=== PATIENT | female | born 1960 | race Caucasian/White ===

== ENCOUNTER 2024-11-15 12:41 | Outpatient (CLI) | payer BC, SELFPAY ==
[2024-11-15 13:04] LABS: Hematocrit 39.0 % (37.0-47.0); Hemoglobin 13.4 g/dL (12.0-15.0)
--- NOTE | 2024-11-15 13:04 | ECG_ITS ---
Test Date: 2024-11-15 13:15:52 Measurements Intervals [place] Rate: 77 P: 30 DC: 168 QRS: -13 QRSD: 90 T: 25 QT: 395 QTc: 447 Interpretive Statements SINUS RHYTHM POSSIBLE LEFT ATRIAL ENLARGEMENT INCOMPLETE RIGHT BUNDLE BRANCH BLOCK DELAYED PRECORDIAL R/S TRANSITION LOW QRS VOLTAGE IN PRECORDIAL LEADS INFERIOR INFARCT, AGE INDETERMINATE BASELINE ARTIFACT- I, III, AVR, AVL, AVF, V5 ABNORMAL ECG No previous ECG available for comparison Electronically Signed On 11-15-2024 13:26:51 CDT by Andrew Hines D.O.
[2024-11-15 13:07] LABS: Hemoglobin A1C 6.0 % (<5.7)
[2024-11-15 13:13] LABS: Albumin Level 4.2 g/dL (3.5-5.1); Estimated Glomerular Filt Rate 58; Glucose 103 mg/dL (65-110)
== END 2024-11-15 12:42 | disposition home or self-care (01) ==
LOC: ANHLAB 12:42
PROVIDERS: Visit Provider Orthopaedic Surgery
DX: E78.00 Pure hypercholesterolemia, unspecified (principal); E11.9 Type 2 diabetes mellitus without complications; R01.1 Cardiac murmur, unspecified; R94.31 Abnormal electrocardiogram [ECG] [EKG]
CPT/HCPCS: 36415; 82040; 82565; 82947; 83036; 85014; 85018; 93005

== ENCOUNTER 2025-01-26 11:48 | Outpatient (CLI) | payer BC, SELFPAY ==
--- OUTSIDE RECORDS SUMMARY | 2025-01-26 12:03 | XMS_ITS | Encounter Summary ---
Author Organization [facility] Address [address] [place] [address] Care Team Providers Care Private Pilot Name Role Phone Jairon Fonseca MD Primary Care Provider [phone] Encounter Details Date Type Department Care Team (Late st Contact Info) Description 04/22/2000 Outpatient Historical HIS [facility] Jason Reid MD Social History Tobacco Use Types Packs/Day Years Used Date Smoking Tobacco: Never Assessed Comments Unknown Sex and Gender Information Value Date Recorded Sex Assigned at Female 12/14/2023 7:45 PM CERTIFIED DIETARY MANAGER Legal Sex Female 4:56 AM CERTIFIED DIETARY MANAGER Gender Identity Female 12/14/2023 7:45 PM CERTIFIED DIETARY MANAGER Sexual Orientation Straight 12/14/2023 7: 45 PM CERTIFIED DIETARY MANAGER documented as of this encounter Plan of Treatment Not on file documented as of this encounter Visit Diagnoses Not on filedocumented in this encounter Care Teams Private Pilot Relationship Specialty Start Date End Date Jairon Fonseca MD [address] [place] [address] PCP - General 06/21/00 10/29/10 documented as of this encounter
--- OUTSIDE RECORDS SUMMARY | 2025-01-26 12:03 | XMS_ITS | Encounter Summary ---
Author Organization [facility] Address [address] [place] [address] Care Team Providers Care Chief Program Officer Name Role Phone Jairon Fonseca MD Primary Care Provider [phone] Encounter Details Date Type Department Care Team (Latest Contact Info) Description 06/21/2000 Outpatient Historical HIS [facility] Jairon [place] MD [address] [place], [place] [id number] Abdominal pain, unspecified site (Primary Dx) Social History Tobacco Use Types Packs/Day Years Used Date Smoking Tobacco: Never Assessed Comments Unknown Sex and Gender Information Value Date Recorded Sex Assigned at Female 12/14/2023 7:45 PM PROOFER APPRENTICE Legal Sex Female 4:56 AM PROOFER APPRENTICE Gender Identity Female 12/14/2023 7:45 PM PROOFER APPRENTICE Sexual Orientation Straight 12/14/2023 7: 45 PM PROOFER APPRENTICE documented as of this encounter Plan of Treatment Not on file documented as of this encounter Visit Diagnoses Diagnosis Abdominal pain, unspecified site- Primary documented in this encounter Care Teams Chief Program Officer Relationship Specialty Start Date End Date Jairon Fonseca MD [address] [place] [address] PCP - General 06/21/00 10/29/10 documented as of this encounter
--- OUTSIDE RECORDS SUMMARY | 2025-01-26 12:03 | XMS_ITS | Encounter Summary ---
Author Organization [facility] Address [address] [place] [address] Care Team Providers Care Communications Supervisor Name Role Phone Jairon Fonseca MD Primary Care Provider [phone] Encounter Details Date Type Department Care Team (Late st Contact Info) Description 06/29/2000 Outpatient Historical HIS [facility] MarianJairon agudelo MD [address] [place], [place] [id number] Abdominal pain, left upper quadrant (Primary Dx) Social History Tobacco Use Types Packs/Day Years Used Date Smoking Tobacco: Never Assessed Comments Unknown Sex and Gender Information Value Date Recorded Sex Assigned at Female 12/14/2023 7:45 PM BAND TUMBLER Legal Sex Female 4:56 AM BAND TUMBLER Gender Identity Female 12/14/2023 7:45 PM BAND TUMBLER Sexual Orientation Straight 12/14/2023 7: 45 PM BAND TUMBLER documented as of this encounter Plan of Treatment Not on file documented as of this encounter Visit Diagnoses Diagnosis Abdominal pain, left upper quadrant- Primary documented in this encounter Care Teams Communications Supervisor Relationship Specialty Start Date End Date Jairon Fonseca MD [address] [place] [address] PCP - General 06/21/00 10/29/10 documented as of this encounter
--- OUTSIDE RECORDS SUMMARY | 2025-01-26 12:03 | XMS_ITS | Encounter Summary ---
Author Organization [facility] Address [address] [place] [address] Care Team Providers Care Information Systems Security Analyst Name Role Phone Jairon Fonseca MD Primary Care Provider [phone] Encounter Details Date Type Department Care Team (Late st Contact Info) Description 10/30/1999 Outpatient Historical HIS [facility] Jason Reid MD Social History Tobacco Use Types Packs/Day Years Used Date Smoking Tobacco: Never Assessed Comments Unknown Sex and Gender Information Value Date Recorded Sex Assigned at Female 12/14/2023 7:45 PM SATELLITE TV INSTALLER Legal Sex Female 4:56 AM SATELLITE TV INSTALLER Gender Identity Female 12/14/2023 7:45 PM SATELLITE TV INSTALLER Sexual Orientation Straight 12/14/2023 7: 45 PM SATELLITE TV INSTALLER documented as of this encounter Plan of Treatment Not on file documented as of this encounter Visit Diagnoses Not on filedocumented in this encounter Care Teams Information Systems Security Analyst Relationship Specialty Start Date End Date Jairon Fonseca MD [address] [place] [address] PCP - General 06/21/00 10/29/10 documented as of this encounter
--- OUTSIDE RECORDS SUMMARY | 2025-01-26 12:03 | XMS_ITS | Clinical Summary ---
Author Organization [facility] Address [address] [place] [address] Care Team Providers Care Computer Builder Name Role Phone No, Physician Primary Care Provider [phone] Allergies Active Allergy Reactions Criticality Noted Date Comments Oxycodone-Acetaminophen Unknown 09/12/2019 Medications omeprazole (PriLOSEC) 40 mg capsule TK 1 C PO D 0 Active naproxen (NAPROSYN) 500 mg tablet TK 1 T PO TID PRF PAIN 0 Active lisinopril-hydroCH LOROthiazide (ZESTORETIC) 20-25 mg per tablet TK 1 T PO D 0 Active Lacto.acidophilus- Bif.animalis (Probiotic) 5 billion cell capsule, sprinkle Take 1 capsule by mouth daily Active ibuprofen (ibuprofen) 200 mg tab/cap Take 400 mg by mouth every 6 (six) hours as needed Active cyclobenzaprine (FLEXERIL) 10 mg tablet TK 1 T PO QHS PRF SPASM 0 Active cyanocobalamin, vitamin B-12, 1,000 mcg tablet extended release Take 3,000 mcg by mouth daily Active cholecalciferol (VITAMIN D-3) 1,000 unit capsule Take 1,000 Units by mouth daily Active fluconazole (DIFLUCAN) 150 mg tabletIndications: Encounter for well woman exam with routine gynecological exam Take one tablet prn, may repeat in 72 hours if symptoms persist 2 tablet 6 1 Active Active Problems Problem Noted Date Diagnosed Date Personal history of malignant neoplasm of breast 09/22/2019 Medical History Medical History Date Comments Breast cancer (HCC) Family History Medical History Relation Name Comments Crohn's disease Father Hypertension Father Kidney disease Father Liver disease Father Lymphoma Father Breast cancer Father's Sister Uterine cancer Maternal Grandmother Glaucoma Mother Hypertension Mother Hypothyroidism Mother Breast cancer Mother's Sister Stroke Mother's Sister Breast cancer Other Colon cancer Neg Hx Ovarian cancer Neg Hx Relation Name Status Comments Father Father's Sister Maternal Grandmother Mother Alive Mother's Sister Other Social History Tobacco Use Types Packs/Day Years Used Date Smoking Tobacco: Never Smokeless Tobacco: Never Alcohol Use Standard Drinks/Week Comments Yes 0 (1 standard drink = 0.6 oz pur e alcohol) Humiliation, Afraid, Rape, and Kick questionnair e Answer Date Recorded Within the last year, have y ou been afraid of your partner or ex-partner? No 09/22/2019 Within the last year, have y ou been humiliated or emotionally abused in other ways by your partner or ex-partner? No Within the last year, have y ou been kicked, hit, slapped, or otherwise physically hurt by your partner or ex-partner? No 09/22/2019 Within the last year, have y ou been raped or forced to have any kind of sexual activity by your partner or ex-partner? No 09/22/2019 Social Connection and Isolation Panel Answer Date Recorded Frequency of Communication with Friends and Fami ly Not on file 09/22/2019 Frequency of Social Gatherings with Friends and Family Not on file 09/22/2019 Attends Spiritism Services Not on file 09/21 Active Member of Clubs or Organizations Not on f ile 09/22/2019 Attends Club or Organization Meetings Not on katrina e 09/22/2019 Are you , , di vorced, , never , or living with a partner? 09/22/2019 Personal Safety Answer Date Recorded Getting School Help Needed Not on file 04/24 Comments No Sex and Gender Information Value Date Recorded Sex Assigned at Not on file Legal Sex Female 9:34 AM STEAM HEATING INSTALLER Gender Identity Not on file Sexual Orientation Not on file Obstetrics History Para Term AB IAB SAB Ectopic Multiple Livin g Live Births 2 2 2 2 Date Outcome GA Total Labor Labor/2nd/3rd Weight Sex Type Anes PTL Joann A1 A5 Name Clin 4 Para 2.438 kg (5 lb 6 oz) M CS-LT ranv Living 1997 Para 2.693 kg (5 lb 15 oz) M CS-LT ranv Living Last Filed Vital Signs Vital Sign Reading Time Taken Comments Blood Pressure 136/80 09/30/2020 11:02 AM CDT Pulse - - Temperature - - Respiratory Rate - - Oxygen Saturation - - Inhaled Oxygen Concentration - - Weight 102.4 kg (225 lb 12.8 oz) 2020 11:02 AM CDT Height 157.5 cm (5' 2) 09/30/2020 11:0 2 AM CDT Body Mass Index 41.3 09/30/2020 11:02 AM CDT Plan of Treatment Not on file Care Teams Computer Builder Relationship Specialty Start Date End Date No, Physician PCP - General 09/06/19
--- OUTSIDE RECORDS SUMMARY | 2025-01-26 12:03 | XMS_ITS | Clinical Summary ---
Author Organization [facility] Address [address] [place] [address] Phone Care Team Providers Care Automobile Parts Assembler Name Role Phone Unavailable Primary Care Provider Unavailabl e Allergies Active Allergy Reactions Criticality Noted Date Comments Oxycodone-Acetaminophen Rash Low 08/06/2022 1994 after 1st (pt states allergy not to tylenol) Medications lisinopril-hydr oCHLOROthiazide (ZESTORETIC) 20-25 mg tablet Take 1 Tablet by mouth daily. Active pravastatin (PRAVACHOL) 40 mg tablet Take 40 mg by mouth daily. Active semaglutide (Ozempic) 0.25 mg or 0.5 mg (2 mg/3 mL) Pen InjectorIndicat ions:for weightloss Inject 0.5 mg by subcutaneous injection every 7 days. Injects on wednesday Active meloxicam (MOBIC) 15 mg tablet Take 15 mg by mouth daily at bedtime. Active omeprazole (PriLOSEC) 40 mg Capsule, Delayed Release(E.C.) Take 40 mg by mouth daily. Active fexofenadine (SUNNY) 180 mg tablet Take 180 mg by mouth daily. Active cyclobenzaprine (FLEXERIL) 10 mg tablet Take 10 mg by mouth nightly as needed for Spasm. Active naproxen (NAPROSYN EC) 500 mg Tablet, Delayed Release (E.C.) Take 500 mg by mouth 3 times daily as needed for Pain. Active chlorzoxazone (PARAFON FORTE) 500 mg tablet Take 500 mg by mouth 3 times daily as needed for Spasm. Active Cholecalciferol , Vitamin D3, 50 mcg (2,000 unit) Capsule Take 2,000 Units by mouth daily. Active cyanocobalamin, vitamin B-12, (VITAMIN B-12 ORAL) Take 3,000 Units by mouth daily. Active biotin 5,000 mcg Tablet, Chewable Take 5,000 mcg by mouth daily. Active L. acidophilus/L. rhamnosus (PROBIOTIC ORAL) Take 1 Tablet by mouth daily. Active traMADoL (Ultram) 50 mg tabletIndicatio ns:Acute pain of right knee Take 1 Tablet (50 mg) by mouth every 6 hours as needed for Pain. 40 Tablet 09/17/2022 10:31 AM CDT Active Social History Tobacco Use Types Packs/Day Years Used Date Smoking Tobacco: Never Smokeless Tobacco: Never Alcohol Use Standard Drinks/Week Comments Yes 0 (1 standard drink = 0.6 oz pur e alcohol) rarely Feeling Safe Answer Date Recorded Are you in a relationship wi th someone who hurts you emotionally and/or physically? No 09/17/2022 Comments No Sex and Gender Information Value Date Recorded Sex Assigned at Female 12/14/2023 7:45 PM COMMUNITY RESOURCE OFFICER Legal Sex Female 4:56 AM COMMUNITY RESOURCE OFFICER Gender Identity Female 12/14/2023 7:45 PM COMMUNITY RESOURCE OFFICER Sexual Orientation Straight 12/14/2023 7: 45 PM COMMUNITY RESOURCE OFFICER Last Filed Vital Signs Vital Sign Reading Time Taken Comments Blood Pressure 149/69 09/17/2022 10:38 AM CDT Pulse 77 09/17/2022 10:38 AM CDT Temperature 36.5 C (97.7 F) 09/17/2022 9:52 AM CDT Respiratory Rate 14 09/17/2022 10:38 AM CDT Oxygen Saturation 98% 09/17/2022 10:38 AM CDT Inhaled Oxygen Concentration - - Weight 98.4 kg (217 lb) 09/17/2022 6:32 AM CDT Height 158.8 cm (5' 2.5) 09/17/2022 6:32 AM CDT Body Mass Index 39.06 09/17/2022 6:32 AM CDT Plan of Treatment Health Maintenance Due Date Last Done Comments HPV/Cotest (21-29) 07/10/1983 CERVICAL CANCER SCREENING 1992 HPV/Cotest (30-65) 1992 PAP SMEAR 1992 BREAST CANCER SCREENING 2002 COLORECTAL SCREENING 07/10/2007 Colorectal Cancer Screening 07/10/2007 FIT-DNA Q 3 years 07/10/2007 FIT/FOBT Q 1 year 07/10/2007 Flex Sig/CT Colonography Q 5 years 07/10/2007 ZOSTER VACCINE (1 of 2) 2012 INFLUENZA VACCINE (#1) 2024 COVID-19 Vaccine ( season) 2024, 05/03/2020 DTAP/TDAP/TD VACCINES (2 - Tdap) 03/19/2032 03/19/19 23 RSV VACCINE (60+ or ) (1 - 1-dose 75+ series) 2037 Insurance [facility] BLUE ACCESS/TRUE BLUE PPO RX [facility] [employer]
--- OUTSIDE RECORDS SUMMARY | 2025-01-26 12:03 | XMS_ITS | Encounter Summary ---
Author Organization [facility] Address [address] [place] [address] Care Team Providers Care Emergency Medical Service Coordinator Name Role Phone Jairon Fonseca MD Primary Care Provider [phone] Encounter Details Date Type Department Care Team (Latest Contact Info) Description 09/27/2006 Outpatient Historical HIS [facility] Fonseca, MD Jairon 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) Social History Tobacco Use Types Packs/Day Years Used Date Smoking Tobacco: Never Assessed Comments Unknown Sex and Gender Information Value Date Recorded Sex Assigned at Female 12/14/2023 7:45 PM V BLOCK SAW OPERATOR Legal Sex Female 4:56 AM V BLOCK SAW OPERATOR Gender Identity Female 12/14/2023 7:45 PM V BLOCK SAW OPERATOR Sexual Orientation Straight 12/14/2023 7: 45 PM V BLOCK SAW OPERATOR documented as of this encounter Plan of Treatment Not on file documented as of this encounter Visit Diagnoses Diagnosis Lumbosacral spondylosis without myelopathy- Primary documented in this encounter Care Teams Emergency Medical Service Coordinator Relationship Specialty Start Date End Date Jairon Fonseca MD [address] [place] [address] PCP - General 06/21/00 10/29/10 documented as of this encounter
--- OUTSIDE RECORDS SUMMARY | 2025-01-26 12:03 | XMS_ITS | Encounter Summary ---
Author Organization [facility] Address [address] [place] [address] Care Team Providers Care Inspecting Supervisor Name Role Phone Jairon Fonseca MD Primary Care Provider [phone] Encounter Details Date Type Department Care Team (Late st Contact Info) Description 10/07/1998 Outpatient Historical HIS [facility] Jason Reid MD Social History Tobacco Use Types Packs/Day Years Used Date Smoking Tobacco: Never Assessed Comments Unknown Sex and Gender Information Value Date Recorded Sex Assigned at Female 12/14/2023 7:45 PM SCHOOL PHYSICAL THERAPIST Legal Sex Female 4:56 AM SCHOOL PHYSICAL THERAPIST Gender Identity Female 12/14/2023 7:45 PM SCHOOL PHYSICAL THERAPIST Sexual Orientation Straight 12/14/2023 7: 45 PM SCHOOL PHYSICAL THERAPIST documented as of this encounter Plan of Treatment Not on file documented as of this encounter Visit Diagnoses Not on filedocumented in this encounter Care Teams Inspecting Supervisor Relationship Specialty Start Date End Date Jairon Fonseca MD [address] [place] [address] PCP - General 06/21/00 10/29/10 documented as of this encounter
--- OUTSIDE RECORDS SUMMARY | 2025-01-26 12:03 | XMS_ITS | Encounter Summary ---
Author Organization [facility] Address [address] [place] [address] Care Team Providers Care Automatic Blocker Name Role Phone Jairon Fonseca MD Primary Care Provider [phone] Encounter Details Date Type Department Care Team (Late st Contact Info) Description 12/30/1999 Outpatient Historical HIS [facility] Jason Reid MD Social History Tobacco Use Types Packs/Day Years Used Date Smoking Tobacco: Never Assessed Comments Unknown Sex and Gender Information Value Date Recorded Sex Assigned at Female 12/14/2023 7:45 PM CASINO WORKER Legal Sex Female 4:56 AM CASINO WORKER Gender Identity Female 12/14/2023 7:45 PM CASINO WORKER Sexual Orientation Straight 12/14/2023 7: 45 PM CASINO WORKER documented as of this encounter Plan of Treatment Not on file documented as of this encounter Visit Diagnoses Not on filedocumented in this encounter Care Teams Automatic Blocker Relationship Specialty Start Date End Date Jairon Fonseca MD [address] [place] [address] PCP - General 06/21/00 10/29/10 documented as of this encounter
--- OUTSIDE RECORDS SUMMARY | 2025-01-26 12:03 | XMS_ITS | Encounter Summary ---
Author Organization [facility] Address [address] [place] [address] Care Team Providers Care Circular Knife Machine Cutter Name Role Phone Jairon Fonseca MD Primary Care Provider [phone] Encounter Details Date Type Department Care Team (Late st Contact Info) Description 03/31/1999 Outpatient Historical HIS [facility] Jason Reid MD Social History Tobacco Use Types Packs/Day Years Used Date Smoking Tobacco: Never Assessed Comments Unknown Sex and Gender Information Value Date Recorded Sex Assigned at Female 12/14/2023 7:45 PM ORTHOPEDIC DENTIST Legal Sex Female 4:56 AM ORTHOPEDIC DENTIST Gender Identity Female 12/14/2023 7:45 PM ORTHOPEDIC DENTIST Sexual Orientation Straight 12/14/2023 7: 45 PM ORTHOPEDIC DENTIST documented as of this encounter Plan of Treatment Not on file documented as of this encounter Visit Diagnoses Not on filedocumented in this encounter Care Teams Circular Knife Machine Cutter Relationship Specialty Start Date End Date Jairon Fonseca MD [address] [place] [address] PCP - General 06/21/00 10/29/10 documented as of this encounter
--- OUTSIDE RECORDS SUMMARY | 2025-01-26 12:03 | XMS_ITS | Clinical Summary ---
Author Organization [facility] Address [address] [place] [address] Care Team Providers Care Email Operations Manager Name Role Phone Jason Reid MD Primary Care Provider [phone] Source Comments [facility],non-owned Affiliates and Associated Physician Practices is amultiple site organization consisting of ambulatory clinics and hospital sitesin [place], [place], [place] and [place]. This disclosure is being madepursuant to the Care Everywhere program and may not contain all information available regarding this patient. Last updated 17.Semblee_ Allergies No known active allergies Medications * Be aware that medications may not be up to date on this document. Alwaysverify current medications with the patient. ibuprofen (MOTRIN) 200 MG tablet Take 400 mg by mouth every 6 hours as needed for Pain Active lisinopril-hydr ochlorothiazide (PRINZIDE; ZESTORETIC) 20-25 MG tablet Take 1 Tab by mouth once daily Active vitamin b-12 (CYANCOBALAMIN) 1000 MCG tablet cr Take 3,000 mcg by mouth once daily Active Vitamin D, Cholecalciferol , 1000 UNITS CAPS Take 1,000 Units by mouth once daily Active omeprazole (PRILOSEC) 40 MG capsule Take 40 mg by mouth daily before breakfast Active Probiotic Product (PROBIOTIC DAILY) capsule Take 1 Cap by mouth once daily Active naproxen (NAPROSYN) 500 MG tablet TK 1 T PO TID FOR 30 DAYS 11 7 Active cyclobenzaprine (FLEXERIL) 10 MG tablet TK 1 T PO ONCE D PRN 11 7 Active benzonatate (TESSALON) 200 MG capsuleIndicati ons:Cough Take 1 capsule by mouth 3 times daily as needed for Cough Reasons: Cough 30 capsule 8 Active Additional Information Patient not taking.Reported on 01/21/2019 benzonatate (TESSALON) 200 MG capsule Take 1 capsule by mouth 3 times daily as needed for Cough 20 capsule 9 Active Social History Tobacco Use Types Packs/Day Years Used Date Smoking Tobacco: Never Smokeless Tobacco: Never Alcohol Use Standard Drinks/Week Comments Yes 0 (1 standard drink = 0.6 oz pur e alcohol) rare Comments No Sex and Gender Information Value Date Recorded Sex Assigned at Not on file Legal Sex Female 11:40 AM CDT Gender Identity Not on file Sexual Orientation Not on file Last Filed Vital Signs Vital Sign Reading Time Taken Comments Blood Pressure 138/78 01/21/2019 10:49 AM CHEMICAL EQUIPMENT SALES ENGINEER Pulse 98 01/21/2019 10:49 AM CHEMICAL EQUIPMENT SALES ENGINEER Temperature 37.2 C (98.9 F) 01/21/2019 10:49 AM CHEMICAL EQUIPMENT SALES ENGINEER Respiratory Rate 18 01/21/2019 10:49 AM CHEMICAL EQUIPMENT SALES ENGINEER Oxygen Saturation 97% 01/21/2019 10:49 AM CHEMICAL EQUIPMENT SALES ENGINEER Inhaled Oxygen Concentration - - Weight 99.8 kg (220 lb) 01/21/2019 10:49 AM CHEMICAL EQUIPMENT SALES ENGINEER Height 157.5 cm (5' 2) 01/21/2019 10:49 AM CHEMICAL EQUIPMENT SALES ENGINEER Body Mass Index 40.24 01/21/2019 10:49 AM CHEMICAL EQUIPMENT SALES ENGINEER Plan of Treatment Health Maintenance Due Date Last Done Comments COLOGUARD (AGES 45-75) - COL ON CA SCREENING 1962 COLON MONITORING 1962 COLONOSCOPY - COLON CA SCREENING 1962 CT COLONOGRAPHY - COLON CA SCREENING 1962 Colorectal Cancer Screening 1962 FIT - COLON CA SCREENING 1962 FLEX SIG - COLON CA SCREENING 1962 LIPID TESTING 1962 MAMMOGRAM 1962 HIV SCREENING 1977 HEPATITIS C SCREENING 07/04/1980 DTAP/TDAP/TD VACCINES (1 - Tdap) 1981 PNEUMOCOCCAL VACCINE 50+ (1 of 1 - PCV) 2012 ZOSTER VACCINE (1 of 2) 2012 DEPRESSION SCREENING 02/09/2024 COVID-19 VACCINE (2024-2 6 season) 2024 INFLUENZA VACCINE (#1) 2024 Respiratory Syncytial Virus (RSV) Vaccine Pt: or over 60 yrs (1 - 1-dose 75+ series) 2037 HEPATITIS B VACCINE Aged Out No longe r eligible based on patient's age to complete this topic HIB VACCINE Aged Out No longer eligi ble based on patient's age to complete this topic HPV VACCINE Aged Out No longer eligi ble based on patient's age to complete this topic MENINGOCOCCAL (Group B) VACC INE SHARED DECISION-MAKING Aged Out No longer eligibl e based on patient's age to complete this topic MENINGOCOCCAL GROUPS A/C/Y/W VACCINE Aged Out No longer eligible b ased on patient's age to complete this topic Medical Devices Implanted Type Area Knife Setter Assembler Device Identifier Shelf Expiration Date Model / Serial / Lot 2.3 M Profyle Hand Locking Plate Implanted:Qty: 1 on 08/08/2015 by Sylwia Funez DPM at Former[facility] named [facility] Right: Foot [employer] [id number] / / REP TRAY Description:sterilzed in set 2.3mm Locking Screws Implanted:Qty: 2 on 08/08/2015 by Sylwia Funez DPM at Formerly named [facility] Right: Foot [employer] [id number] / / REP TRAY Description:sterilized in se t 2.3mm Locking Screws Implanted:Qty: 2 on 08/08/2015 by Sylwia Funez DPM at Formerly named [facility] Right: Foot [employer] [id number] / / REP TRAY Description:sterilized in se t 2..3 Locking Screw Implanted:Qty: 1 on 08/08/2015 by Sylwia Funez DPM at Former[facility] named [facility] Right: Foot [employer] [id number] / / REP TRAY Description:sterilized in se t Insurance [employer] Care Teams Email Operations Manager Relationship Specialty Start Date End Date Jason Reid MD [address] [place] [address] PCP - General Cardiovascular Disease 08/07/16
--- OUTSIDE RECORDS SUMMARY | 2025-01-26 12:03 | XMS_ITS | Encounter Summary ---
Author Organization [facility] Address 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
--- OUTSIDE RECORDS SUMMARY | 2025-01-26 12:03 | XMS_ITS | Encounter Summary ---
Author Organization [facility] Address [address] Attn: Epic Prelude ADT [place] [address] Care Team Providers Care Ukrainian Folk Arts Instructor Name Role Phone Jairon Fonseca MD Primary Care Provider [phone] Encounter Details Date Type Department Care Team (Late st Contact Info) Description 01/03/1997 Outpatient Historical Conversion, History Social History Tobacco Use Types Packs/Day Years Used Date Smoking Tobacco: Never Assessed Comments Unknown Sex and Gender Information Value Date Recorded Sex Assigned at Female 12/14/2023 7:45 PM LITIGATION SUPPORT ANALYST Legal Sex Female 4:56 AM LITIGATION SUPPORT ANALYST Gender Identity Female 12/14/2023 7:45 PM LITIGATION SUPPORT ANALYST Sexual Orientation Straight 12/14/2023 7: 45 PM LITIGATION SUPPORT ANALYST documented as of this encounter Plan of Treatment Not on file documented as of this encounter Visit Diagnoses Not on filedocumented in this encounter Care Teams Ukrainian Folk Arts Instructor Relationship Specialty Start Date End Date Jairon Fonseca MD [address] [place] [address] PCP - General 06/21/00 10/29/10 documented as of this encounter
[2025-01-26 13:39] LABS: Hematocrit 45.8 % (37.0-47.0); Hemoglobin 15.8 g/dL (12.0-15.0); Immature Granulocyte Percent A 0.4 % (0-0.5); Lymphocytes Absolute Auto 3.02 K/mm3 (0.9-3.2); Mean Corpuscular HGB Conc 34.5 g/dl (32-36); Mean Corpuscular Hemoglobin 29.2 pg (26-34); Mean Corpuscular Volume 84.5 fl (80-100); Nucleated Red Blood Cells Absolute Auto 0.000 K/mm3 (0.0-0.012); Nucleated Red Blood Cells Perc 0.0 % (0.0-0.2); Platelet Count Result 385 k/mm3 (150-375); Red Blood Count 5.42 M/mm3 (4.2-5.4); White Blood Count 10.7 K/mm3 (4.5-10.0)
[2025-01-26 13:56] LABS: Albumin Level 4.8 g/dL (3.5-5.1)
[2025-01-26 13:58] LABS: Anion Gap 14 mmol/L (4-12); Blood Urea Nitrogen 21 mg/dL (7-17); Calcium 9.7 mg/dL (8.4-10.2); Carbon Dioxide 26 mmol/L (22-30); Chloride 95 mmol/L (98-107); Estimated Glomerular Filt Rate 43; Glucose 110 mg/dL (65-110); Potassium 3.2 mmol/L (3.4-5.0); Sodium 135 mmol/L (137-145)
[2025-01-26 14:56] LABS: MRSA (PCR) NOT DETECTED (NOT DETECTE)
== END 2025-01-26 11:49 | disposition home or self-care (01) ==
LOC: ANHSURGERY 11:52
PROVIDERS: Anesthesiology; Visit Provider Orthopaedic Surgery
DX: M17.12 Unilateral primary osteoarthritis, left knee (principal); Z01.818 Encounter for other preprocedural examination
CPT/HCPCS: 36415; 80048; 80307; 82040; 85025; 87641